=== PATIENT | female | born 1970 | race African-American/Black ===

== ENCOUNTER 2019-10-08 16:06 | Emergency (ER) | payer MEDICAID, OTHER ==
[~2019-10-08] VITALS: Ht 160 cm; Wt 50.0 kg
[2019-10-08] MEDS ORDERED: MORPHINE SULFATE 4 MG/ML CPJ (NOT FOR IM USE) IV STA (16:25)
[2019-10-08] MEDS ORDERED: ONDANSETRON HCL 4MG/2ML INJ IV STA (16:25)
[2019-10-08] MEDS ORDERED: SODIUM CHLORIDE 0.9% 1,000 ML IV ONE (16:25)
[2019-10-08] MEDS ORDERED: CEFTRIAXONE 1 G PREMIX 50 ML IV ONE (16:30)
[2019-10-08 17:28] LABS: HEMATOCRIT. 43.8 % (36.0-48.0); HEMOGLOBIN. 14.7 g/dL (12.0-16.0); MEAN CORPUSCULAR HEMOGLOBIN 35.5 pg (28.0-32.0); MEAN CORPUSCULAR VOLUME 105.8 fL (81.0-99.0); MEAN PLATELET VOLUME 8.3 fl (7.4-10.4); PLATELET 243 x1000/uL (130-400); RED BLOOD CELL COUNT 4.14 mill/uL (4.2-5.4)
[2019-10-08 17:34] LABS: CHLORIDE 104 mEq/L (98-107)
[2019-10-08 17:38] LABS: CLARITY URINE TURBID (CLEAR); COLOR URINE YELLOW (YELLOW); ETHANOL BLOOD < 10 mg/dL; KETONES URINE NEGATIVE (NEGATIVE); LEUKOCYTE ESTERASE URINE 3+ (NEGATIVE); NITRITE URINE POSITIVE (NEGATIVE); OCCULT BLOOD URINE 2+ (NEGATIVE); PH URINE 6.5 (4.5-8.0); PROTEIN URINE 3+ (NEGATIVE); SPECIFIC GRAVITY URINE 1.011 (1.005-1.030); UROBILINOGEN URINE 0.2 E.U./dL (0.2-1.0)
[2019-10-08 17:42] LABS: HCG SCREEN NEGATIVE
[2019-10-08 18:06] LABS: *AMPHETAMINES SCREEN URINE NEGATIVE (NEGATIVE); *BARBITURATES SCREEN URINE NEGATIVE (NEGATIVE); *BENZODIAZEPINES SCREEN URINE NEGATIVE (NEGATIVE)
[2019-10-08 18:07] LABS: METHADONE URINE SCREEN NEGATIVE (NEGATIVE); OPIATES URINE SCREEN NEGATIVE (NEGATIVE); PHENCYCLIDINE URINE SCREEN NEGATIVE (NEGATIVE)
[2019-10-08 18:09] LABS: *COCAINE SCREEN URINE PRESUMTIVE POSITIVE (NEGATIVE); CANNABINOID URINE SCREEN PRESUMTIVE POSITIVE (NEGATIVE)
[2019-10-08 18:22] LABS: PLATELET ESTIMATE NORMAL
[2019-10-08] MEDS ORDERED: KETOROLAC 30MG/ML VIAL IV ONE (19:15)
[2019-10-08 21:22] VITALS: BP 128/75
== END 2019-10-08 21:25 | disposition home or self-care (01) ==
LOC: ER 16:06
DX: N30.10 Interstitial cystitis (chronic) without hematuria (principal); F14.10 Cocaine abuse, uncomplicated; F17.210 Nicotine dependence, cigarettes, uncomplicated; R00.0 Tachycardia, unspecified; I10 Essential (primary) hypertension; Z98.890 Other specified postprocedural states; Z86.2 Personal history of diseases of the blood and blood-forming organs and certain disorders involving the immune mechanism; Z87.09 Personal history of other diseases of the respiratory system
CPT/HCPCS: 36415; 71045; 74176; 80053; 80305; 80320; 81003; 83605; 83690; 83880; 84484; 84703; 85025; 87040; 87077; 87086; 87186; 87804; 96365; 96375; 99284; 99406; J0696; J1885; J2270; J2405; J7030; Z7610; G0480

== ENCOUNTER 2021-09-28 11:26 | Emergency (ER) | payer MEDICAID, OTHER ==
[~2021-09-28] VITALS: Ht 149.9 cm; Wt 45.0 kg
[2021-09-28 15:50] LABS: BASOPHILS % 0.6 % (0.0-2.0); EOSINOPHILS % 2.2 % (0.0-5.0); HEMOGLOBIN. 11.8 g/dL (12.0-16.0); LYMPHOCYTES % 22.1 % (20.0-50.0); MEAN CORPUSCULAR HEMOGLOBIN 36.5 pg (28.0-32.0); MEAN CORPUSCULAR VOLUME 104.7 fL (81.0-99.0); MEAN PLATELET VOLUME 7.8 fl (7.4-10.4); MONOCYTES % 5.3 % (2.0-8.0); NEUTROPHILS % 69.8 % (40.0-76.0); PLATELET 303 x1000/uL (130-400); RED BLOOD CELL COUNT 3.25 mill/uL (4.2-5.4); RED CELL DISTRIBUTION WIDTH 14.9 % (11.6-14.6)
[2021-09-28 16:02] LABS: INR 0.9; PROTHROMBIN TIME 10.2 sec (9.6-11.0)
[2021-09-28 16:06] LABS: CHLORIDE 108 mEq/L (98-107)
[2021-09-28 17:57] LABS: CLARITY URINE CLEAR (CLEAR); COLOR URINE YELLOW (YELLOW); KETONES URINE NEGATIVE (NEGATIVE); LEUKOCYTE ESTERASE URINE NEGATIVE (NEGATIVE); NITRITE URINE NEGATIVE (NEGATIVE); OCCULT BLOOD URINE 1+ (NEGATIVE); PH URINE 7.5 (4.5-8.0); PROTEIN URINE NEGATIVE (NEGATIVE); SPECIFIC GRAVITY URINE 1.015 (1.005-1.030); UROBILINOGEN URINE 0.2 E.U./dL (0.2-1.0)
[2021-09-28] MEDS ORDERED: HYDROCODONE/APAP 7.5/325MG 1 TAB TABLET PO ONE (18:15)
[2021-09-28] MEDS: HYDROCODONE/ACETAMINOPHEN 5/325MG TABLET PO PRN ×2 (18:22→20:23)
[2021-09-28] MEDS ORDERED: KETOROLAC 30MG/ML VIAL IM ONE (20:00)
[2021-09-28] MEDS ORDERED: NAPR-681 MT (20:01)
[2021-09-28 20:34] VITALS: BP 136/83
== END 2021-09-28 20:35 | disposition home or self-care (01) ==
LOC: ER 11:26
DX: R10.11 Right upper quadrant pain (principal); D64.9 Anemia, unspecified; I10 Essential (primary) hypertension; Z98.890 Other specified postprocedural states
CPT/HCPCS: 36415; 76705; 80053; 81003; 81025; 83690; 85025; 85610; 96372; 99284; A4217; J1885; Z7610

== ENCOUNTER 2021-09-30 14:50 | Emergency (ER) | payer MEDICAID ==
[~2021-09-30] VITALS: Ht 149.9 cm; Wt 44.0 kg
[~2021-09-30 14:50] MED LIST: NAPR-681 MT
[2021-09-30] MEDS ORDERED: MAGNESIUM/ALUMINUM HYDROXIDE/SIMETHICONE 30ML UDC PO STA (18:18)
[2021-09-30] MEDS ORDERED: VISCOUS LIDOCAINE 2% 15 ML UDC MM STA (18:18)
[2021-09-30 18:56] LABS: BASOPHILS % 0.9 % (0.0-2.0); EOSINOPHILS % 2.7 % (0.0-5.0); HEMOGLOBIN. 12.5 g/dL (12.0-16.0); LYMPHOCYTES % 20.1 % (20.0-50.0); MEAN CORPUSCULAR HEMOGLOBIN 35.7 pg (28.0-32.0); MEAN CORPUSCULAR VOLUME 105.7 fL (81.0-99.0); MEAN PLATELET VOLUME 8.4 fl (7.4-10.4); MONOCYTES % 6.9 % (2.0-8.0); NEUTROPHILS % 69.4 % (40.0-76.0); PLATELET 364 x1000/uL (130-400); RED CELL DISTRIBUTION WIDTH 15.3 % (11.6-14.6)
[2021-09-30 19:01] LABS: CLARITY URINE CLOUDY (CLEAR); COLOR URINE YELLOW (YELLOW); KETONES URINE NEGATIVE (NEGATIVE); LEUKOCYTE ESTERASE URINE NEGATIVE (NEGATIVE); NITRITE URINE NEGATIVE (NEGATIVE); OCCULT BLOOD URINE NEGATIVE (NEGATIVE); PH URINE 7.5 (4.5-8.0); PROTEIN URINE NEGATIVE (NEGATIVE); SPECIFIC GRAVITY URINE 1.021 (1.005-1.030)
[2021-09-30 19:03] LABS: CHLORIDE 108 mEq/L (98-107)
[2021-09-30 19:04] LABS: INR 0.9; PROTHROMBIN TIME 10.2 sec (9.6-11.0)
[2021-09-30 19:08] LABS: ETHANOL BLOOD < 10 mg/dL
[2021-09-30 19:13] LABS: *AMPHETAMINES SCREEN URINE NEGATIVE (NEGATIVE); *BARBITURATES SCREEN URINE NEGATIVE (NEGATIVE); *COCAINE SCREEN URINE NEGATIVE (NEGATIVE); CANNABINOID URINE SCREEN PRESUMTIVE POSITIVE (NEGATIVE); METHADONE URINE SCREEN NEGATIVE (NEGATIVE); OPIATES URINE SCREEN PRESUMTIVE POSITIVE (NEGATIVE); PHENCYCLIDINE URINE SCREEN NEGATIVE (NEGATIVE)
[2021-09-30 19:15] LABS: *BENZODIAZEPINES SCREEN URINE NEGATIVE (NEGATIVE)
[2021-09-30] MEDS ORDERED: KETOROLAC 30MG/ML VIAL IM ONE (19:15)
[2021-09-30] MEDS ORDERED: DICYCLOMINE HCL 10MG/ML 2ML AMP IM ONE (20:15)
[2021-09-30] MEDS ORDERED: OMEP20CA14 MT (21:31)
[2021-09-30 21:55] VITALS: BP 133/84
== END 2021-09-30 21:51 | disposition home or self-care (01) ==
LOC: ER 14:50
DX: R10.9 Unspecified abdominal pain (principal); T40.711A Poisoning by cannabis, accidental (unintentional), initial encounter; Y92.9 Unspecified place or not applicable; I10 Essential (primary) hypertension; J40 Bronchitis, not specified as acute or chronic; D64.9 Anemia, unspecified
CPT/HCPCS: 36415; 80053; 80305; 80320; 81003; 81025; 83690; 85025; 85610; 96372; 99284; J0500; J1885; G0480

== ENCOUNTER 2022-10-29 17:40 | Emergency (ER) | payer MEDICAID ==
[~2022-10-29] VITALS: Ht 157.5 cm; Wt 56.0 kg
[~2022-10-29 17:40] MED LIST changes: +OMEP20CA14 MT
[2022-10-29 17:51] VITALS: BP 163/79
[2022-10-30] MEDS ORDERED: ACETAMINOPHEN 325MG TABLET PO STA (02:22)
[2022-10-30] MEDS ORDERED: KETOROLAC 60MG/2ML VIAL IM STA (02:22)
[2022-10-30 02:44] LABS: CLARITY URINE CLOUDY (CLEAR); COLOR URINE YELLOW (YELLOW); KETONES URINE 2+ (NEGATIVE); LEUKOCYTE ESTERASE URINE NEGATIVE (NEGATIVE); NITRITE URINE NEGATIVE (NEGATIVE); OCCULT BLOOD URINE TRACE (NEGATIVE); PROTEIN URINE TRACE (NEGATIVE); SPECIFIC GRAVITY URINE 1.027 (1.005-1.030)
[2022-10-30 03:15] LABS: BASOPHILS % 0.9 % (0.0-2.0); EOSINOPHILS % 1.4 % (0.0-5.0); HEMATOCRIT. 44.2 % (36.0-48.0); LYMPHOCYTES % 13.6 % (20.0-50.0); MEAN CORPUSCULAR HEMOGLOBIN 34.9 pg (28.0-32.0); MEAN CORPUSCULAR VOLUME 102.8 fL (81.0-99.0); MEAN PLATELET VOLUME 8.1 fl (7.4-10.4); MONOCYTES % 6.1 % (2.0-8.0); PLATELET 282 x1000/uL (130-400); RED CELL DISTRIBUTION WIDTH 13.9 % (11.6-14.6)
[2022-10-30 03:19] LABS: CHLORIDE 104 mEq/L (98-107)
[2022-10-30] MEDS ORDERED: NAPR500T7 MT (04:19)
== END 2022-10-30 05:13 | disposition home or self-care (01) ==
LOC: ER 17:40
DX: Z98.890 Other specified postprocedural states (principal); I10 Essential (primary) hypertension; S39.012A Strain of muscle, fascia and tendon of lower back, initial encounter; X58.XXXA Exposure to other specified factors, initial encounter; Y93.89 Activity, other specified; Y92.89 Other specified places as the place of occurrence of the external cause; Y99.8 Other external cause status
CPT/HCPCS: 36415; 71045; 80053; 81003; 83605; 83690; 85025; 96372; 99284; J1885

== ENCOUNTER 2023-03-16 12:24 | Emergency (ER) | payer MEDICAID, OTHER ==
[~2023-03-16] VITALS: Ht 149.9 cm; Wt 46.4 kg
[~2023-03-16 12:24] MED LIST changes: +NAPR500T7 MT
[2023-03-16] MEDS ORDERED: IBUPROFEN 600MG TABLET PO ONE (12:45)
[2023-03-16 12:57] VITALS: BP 161/116
[2023-03-16] MEDS ORDERED: IBUP-2029 MT (14:43)
[2023-03-16] MEDS ORDERED: ACETAMINOPHEN 325MG TABLET PO ONE (14:45)
== END 2023-03-16 15:20 | disposition home or self-care (01) ==
LOC: ER 12:24
DX: S40.022A Contusion of left upper arm, initial encounter (principal); W01.0XXA Fall on same level from slipping, tripping and stumbling without subsequent striking against object, initial encounter; Y93.89 Activity, other specified; Y92.89 Other specified places as the place of occurrence of the external cause; Y99.8 Other external cause status
CPT/HCPCS: 73030; 73080; 73090; 99284

== ENCOUNTER 2023-04-16 11:56 | Emergency (ER) | payer OTHER, MEDICAID ==
[~2023-04-16] VITALS: Ht 149.9 cm; Wt 47.0 kg
[~2023-04-16 11:56] MED LIST changes: +IBUP-2029 MT
[2023-04-16] MEDS ORDERED: METHOCARBAMOL 750MG TABLET PO SCH (15:15)
[2023-04-16] MEDS ORDERED: KETOROLAC 60MG/2ML VIAL IM ONE (15:15)
[2023-04-16] MEDS ORDERED: HYDROCODONE/ACETAMINOPHEN 5/325MG TABLET PO ONE (15:15)
[2023-04-16] MEDS ORDERED: LIDOCAINE 5% PATCH TOP SCH (15:15)
[2023-04-16] MEDS ORDERED: METH-653 MT (16:54)
[2023-04-16] MEDS ORDERED: LIDO1ADH23 TP (16:54)
[2023-04-16] MEDS ORDERED: IBUP-2028 MT (16:54)
[2023-04-16 16:59] VITALS: BP 118/79
== END 2023-04-16 17:00 | disposition home or self-care (01) ==
LOC: ER 12:01
DX: M54.50 Low back pain, unspecified (principal); D64.9 Anemia, unspecified; Z98.890 Other specified postprocedural states; Z79.899 Other long term (current) drug therapy
CPT/HCPCS: 71045; 81025; 96372; 99284; J1885